=== PATIENT | male | born 1945 | race Caucasian/White ===

== ENCOUNTER 2016-10-07 16:54 | Emergency (ER) | payer OTHER, BC ==
[~2016-10-07] VITALS: Ht 193 cm; Wt 101.2 kg
[~2016-10-07 16:54] MED LIST: Bactrim,Septra DS 80 PO; Catapres PO; FELODIPINE ER10 MG PO; FLEXERIL10 MG PO; GLIPIZIDE10 MG PO; Glucophage PO; Glucotrol PO; HYZAAR 100-21 TABLET PO; Hyzaar 100-25 PO; LO-DOSE ASPIRIN81 M2 PO; METFORMIN HCL1000 MG PO; METFORMIN HCL500 MG PO; ONGLYZA5 MG PO; PLENDIL5 M1 PO; PRAVACHOL20 MG PO; Percocet 5/325,Endoc PO; Pravachol PO; SEPTRA DS TABL1 EACH PO; TYLENOL WITH C1 EACH PO; Tradjenta PO; VITAMIN D31000 UNIT PO
[2016-10-07 17:28] LABS: HEMATOCRIT 44.5 % (38.0-50.0); MCH 26.2 PG (29.0-34.0); MCHC 32.4 G/DL (30.0-36.0); MCV 81.1 FL (86-99); MEAN PLAT.VOLUME 9.3 uM^3 (9.0-12.4); PLATELET COUNT 279 K/uL (156-360); RBC DIS.WIDTH-SD 40.9 % (39-53); RED BLOOD COUNT 5.49 M/uL (4.00-5.50)
[2016-10-07 17:39] LABS: CHLORIDE 102 mEq/L (99-109); POTASSIUM 3.7 mEq/L (3.7-5.4); SODIUM 140 mEq/L (136-147)
[2016-10-07 17:41] LABS: GLUCOSE 115 mg/dL (70-99)
[2016-10-07 17:42] LABS: ANION GAP 16 MEQ/L (2-14)
[2016-10-07 17:45] LABS: GFR ESTIMATE (CALCULATED) > 59 mL/min/
[2016-10-07 17:46] LABS: UREA NITROGEN (BUN) 16 mg/dL (9-23)
[2016-10-07 17:51] LABS: TROP-I INTERPRETATION NEGATIVE; TROPONIN-I 0.02 ng/mL (0.0-0.30)
[2016-10-07] MEDS ORDERED: CALAN SR,COVER240 MG PO (19:54)
[2016-10-07 20:05] VITALS: BP 152/89
== END 2016-10-07 20:12 | disposition home or self-care (01) ==
LOC: EME 16:54
DX: I48.92 Unspecified atrial flutter (principal); I48.91 Unspecified atrial fibrillation; I10 Essential (primary) hypertension; E78.5 Hyperlipidemia, unspecified; E11.9 Type 2 diabetes mellitus without complications; Z87.891 Personal history of nicotine dependence; Z79.82 Long term (current) use of aspirin; Z85.46 Personal history of malignant neoplasm of prostate; Z85.51 Personal history of malignant neoplasm of bladder
CPT/HCPCS: 71020; 80048; 84484; 85027; 93005; 99281; 99285; J7030

== ENCOUNTER 2017-08-27 15:37 | Emergency (ER) | payer OTHER, BC ==
[~2017-08-27] VITALS: Ht 193 cm; Wt 102.9 kg
[~2017-08-27 15:37] MED LIST changes: +CALAN SR,COVER240 MG PO
[2017-08-27 16:51] LABS: HEMATOCRIT 42.9 % (38.0-50.0); HEMOGLOBIN 14.6 G/DL (12.5-16.6); MCH 27.2 PG (29.0-34.0); PLATELET COUNT 228 K/uL (156-360); RBC DIS.WIDTH-CV 14.7 % (11.8-14.6); RBC DIS.WIDTH-SD 42.5 % (39-53); RED BLOOD COUNT 5.36 M/uL (4.00-5.50); WHITE BLOOD COUNT 6.8 K/uL (4.1-10.2)
[2017-08-27 17:12] LABS: ALBUMIN 4.1 G/DL (3.2-4.8); CHLORIDE 100 MEQ/L (99-109); POTASSIUM 3.4 MEQ/L (3.7-5.4); SODIUM 138 MEQ/L (136-147); TOTAL BILIRUBIN 0.4 MG/DL (0.0-1.0)
[2017-08-27 17:18] LABS: ALKALINE PHOSPHATASE 64 IU/L (3-129); ALT (GPT) 69 IU/L (3-49); AST (GOT) 43 IU/L (2-34); GFR ESTIMATE (CALCULATED) > 59 mL/min/ (58.99-99999); GLUCOSE 117 mg/dL (70-99); LIPASE 55 U/L (1.0-51.0); TOTAL PROTEIN 6.7 G/DL (6.4-8.3); UREA NITROGEN (BUN) 20 mg/dL (9-23)
[2017-08-27 17:50] LABS: APPEARANCE CLEAR ((CLEAR)); BILIRUBIN NEGATIVE; BLOOD NEGATIVE; COLOR STRAW ((YELLOW)); GLUCOSE (STRIP) NEGATIVE; KETONES NEGATIVE; LEUKOCYTES NEGATIVE; NITRITE NEGATIVE; PROTEIN (STRIP) 30; SPECIFIC GRAVITY 1.012 (1.000-1.030); UCUL ADDED? NO; UROBILINOGEN 0.2 MG/DL (0.2-1.0)
[2017-08-27] MEDS ORDERED: NORCO 5/3251 TABLET PO (18:40)
[2017-08-27 18:55] VITALS: BP 147/98
== END 2017-08-27 19:07 | disposition home or self-care (01) ==
LOC: EME 15:37
PROVIDERS: Emergency Medicine
DX: S39.011A Strain of muscle, fascia and tendon of abdomen, initial encounter (principal); R10.13 Epigastric pain; R00.0 Tachycardia, unspecified; I48.92 Unspecified atrial flutter; X58.XXXA Exposure to other specified factors, initial encounter; E11.9 Type 2 diabetes mellitus without complications; Z79.84 Long term (current) use of oral hypoglycemic drugs; E78.5 Hyperlipidemia, unspecified; I10 Essential (primary) hypertension; Z85.51 Personal history of malignant neoplasm of bladder; Z85.46 Personal history of malignant neoplasm of prostate; Z79.82 Long term (current) use of aspirin; K21.9 Gastro-esophageal reflux disease without esophagitis; Z87.891 Personal history of nicotine dependence; Z91.040 Latex allergy status
CPT/HCPCS: 74176; 80053; 81003; 83690; 85027; 93005; 99281; 99285

== ENCOUNTER 2017-10-17 13:53 | Emergency (ER) | payer OTHER, BC ==
[~2017-10-17] VITALS: Ht 193 cm; Wt 105.0 kg
[~2017-10-17 13:53] MED LIST changes: +NORCO 5/3251 TABLET PO
[2017-10-17] MEDS ORDERED: PREDNISONE20 MG PO (14:55)
[2017-10-17 15:21] VITALS: BP 174/97
== END 2017-10-17 15:22 | disposition home or self-care (01) ==
LOC: EME 13:53
DX: G51.0 Bell's palsy (principal); E11.9 Type 2 diabetes mellitus without complications; Z79.84 Long term (current) use of oral hypoglycemic drugs; I10 Essential (primary) hypertension; E78.5 Hyperlipidemia, unspecified; K21.9 Gastro-esophageal reflux disease without esophagitis; J30.1 Allergic rhinitis due to pollen; Z79.82 Long term (current) use of aspirin; Z87.891 Personal history of nicotine dependence; Z85.46 Personal history of malignant neoplasm of prostate; Z85.51 Personal history of malignant neoplasm of bladder; Z91.040 Latex allergy status
CPT/HCPCS: 99281; 99284; J7512